=== PATIENT | male | born 1965 | race Caucasian/White ===

== ENCOUNTER 2024-03-08 12:29 | Outpatient (OUT) | payer OTHER, SELFPAY ==
[2024-03-08 13:21] LABS: Basophils Percent Auto 0.3 % (0.2-2.0); Eosinophils Absolute Auto 0.1 10^3/uL (0.0-0.7); Eosinophils Percent Auto 1.2 % (0.9-7.0); Hematocrit 48.7 % (42.0-54.0); Immature Granulocytes Abs Auto 0.02 10^3/uL (0.00-0.03); Immature Granulocytes Pct Auto 0.3 % (0.0-0.5); Lymphocytes Absolute Auto 1.5 10^3/uL (1.2-3.8); Lymphocytes Percent Auto 24.3 % (20.5-60.0); Mean Corpuscular HGB Conc 34.9 g/dL (29.9-35.2); Mean Corpuscular Hemoglobin 32.3 pg (25.9-34.0); Mean Corpuscular Volume 92.4 fL (80.0-94.0); Mean Platelet Volume 10.2 fL (9.5-13.5); Monocytes Absolute Auto 0.9 10^3/uL (0.3-0.8); Monocytes Percent Auto 14.7 % (1.7-12.0); Neutrophils Absolute Auto 3.6 10^3/uL (1.4-6.5); Neutrophils Percent Auto 59.2 % (43.0-75.0); Platelet Count 209 10^3/uL (150-450); Red Blood Count 5.27 10^6/uL (4.70-6.10); Red Cell Distribution Width 12.4 % (11.0-15.0); White Blood Count 6.1 10^3/uL (4.0-11.0)
[2024-03-08 13:32] LABS: Estimated Average Glucose 128 mg/dL; Glycohemoglobin A1C 6.1 % (4.5-6.2)
[2024-03-08 14:07] LABS: Alanine Aminotransferase 29 U/L (16-63); Albumin Level 3.8 g/dL (3.4-5.0); Alkaline Phosphatase 101 U/L (46-116); Aspartate Amino Transferase 15 U/L (15-37); BUN Creatinine Ratio 11.2; Bilirubin Total 0.7 mg/dL (0.2-1.0); Calcium 9.6 mg/dL (8.5-10.1); Carbon Dioxide 29.2 mmol/L (21.0-32.0); Chloride 105 mmol/L (98-107); Chol HDL Ratio 2.8; Cholesterol 138 mg/dL (<=200); Estimated GFR (African America >60 (>=60); Estimated GFR (Non-African Ame >60 (>=60); Globulin 3.7 g/dL; Glucose 110 mg/dL (74-106); HDL Cholesterol 50 mg/dL (40-60); LDL Cholesterol Calculated 69.4 mg/dL; Potassium 4.2 mmol/L (3.5-5.1); Sodium 141 mmol/L (136-145); Total Protein 7.5 g/dL (6.4-8.2); Triglycerides 93 mg/dL (<=150); VLDL CHOLESTEROL 18.6 mg/dL
[2024-03-09 10:27] LABS: Prostate Specific Antigen Scrn 0.62 ng/mL (<=4.00)
== END 2024-03-08 12:30 | disposition home or self-care (01) ==
LOC: LAB 12:32
PROVIDERS: PCP Internal Medicine; Visit Provider Internal Medicine
DX: Z00.00 Encounter for general adult medical examination without abnormal findings (principal)
CPT/HCPCS: 36415; 80053; 80061; 82043; 83036; 85025; G0103

== ENCOUNTER 2024-03-30 14:41 | Outpatient (OUT) | payer OTHER, SELFPAY ==
--- NOTE | 2024-03-30 14:47 | XR_ITS ---
The [address] [address] Patient Name: ARCHIE RAJAN MRN: [id number] date: 1965 Sex: M Assigned Patient Location: [facility] Current Patient Location: Accession/Order Number: [id number] Exam Date: 03/30/2024 15:00 Report Date: 04/01/2024 06:29 At the request of: MARICARMEN GILES Procedure: XR shoulder RT min 2V PROCEDURE: XR shoulder RT min 2V HISTORY: Neck Pain, Shoulder Pain , right COMPARISON: None. FINDINGS: BONES:Small ossification along the inferior margin of the glenohumeral joints without appreciable donor site. Degenerative osteophytes along the undersurface of the acromioclavicular joint. SOFT TISSUES:No visible soft tissue swelling. EFFUSION:None visible. OTHER: Negative. XR/XR shoulder RT min 2V IMPRESSION: 1. Nonspecific calcification projecting over inferior aspect of the right glenohumeral joint only seen on image 3. This is suggestively of a fracture fragment but no visible donor site. 2. Degenerative changes of the acromioclavicular joint which would predispose to rotator cuff injury. 3. MRI of right shoulder should be considered for further evaluation. Electronically authenticated by: PERRY TERRY Date: 04/01/2024 06:29
--- NOTE | 2024-03-30 14:47 | XR_ITS ---
The [address] [address] Patient Name: ARCHIE RAJAN MRN: [id number] date: 1965 Sex: M Assigned Patient Location: [facility] Current Patient Location: [facility] Accession/Order Number: [id number] Exam Date: 03/30/2024 15:00 Report Date: 04/01/2024 06:30 At the request of: MARICARMEN GILES Procedure: XR cervical spine w flex/ext EXAMINATION: XR cervical spine w flex/ext HISTORY: Neck Pain, Shoulder Pain , right COMPARISON: No relevant comparison available. FINDINGS: BONES: Multilevel mild degenerative facet arthropathy. Normal height and alignment of vertebral bodies; no fracture, spondylolisthesis, or change in alignment during flexion and extension. DISC SPACES: Slight narrowing C5-C6, C6-C7. PARASPINOUS: Negative. No paraspinous abnormality is seen. OTHER: Negative. XR/XR cervical spine w flex/ext IMPRESSION: 1. Mild degenerative disc disease and facet arthropathy. Electronically authenticated by: PERRY TERRY Date: 04/01/2024 06:30
== END 2024-03-30 14:42 | disposition home or self-care (01) ==
LOC: RAD 14:42
PROVIDERS: PCP Internal Medicine; Visit Provider Internal Medicine
DX: M54.2 Cervicalgia (principal); M25.519 Pain in unspecified shoulder; M47.812 Spondylosis without myelopathy or radiculopathy, cervical region; M50.30 Other cervical disc degeneration, unspecified cervical region
CPT/HCPCS: 72052; 73030

== ENCOUNTER 2024-04-12 12:37 | Outpatient (OUT) | payer OTHER, SELFPAY ==
--- NOTE | 2024-04-12 | MR_ITS ---
[address] [address] Patient Name: ARCHIE RAJAN MRN: [id number] date: 1965 Sex: M Assigned Patient Location: MRI Current Patient Location: Accession/Order Number: [id number] Exam Date: 04/12/2024 13:00 Report Date: 04/14/2024 05:13 At the request of: MARICARMEN GILES Procedure: MR shoulder RT wo con EXAMINATION: MR shoulder RT wo con HISTORY: Fracture of shoulder, right shoulder pain COMPARISON: XR shoulder right 03/30/2024 TECHNIQUE: A variety of imaging planes and parameters were utilized for visualization of suspected pathology. Imaging was performed without or with contrast as indicated by examination type. FINDINGS: ROTATOR CUFF REGION CUFF TENDONS: Mild/moderate strain of the supraspinatus tendon. Suspect disruption of the subscapularis tendon allowing for medial migration of the biceps tendon. CUFF MUSCLES: Normal appearing muscles. DELTOID: No significant atrophy or tear. LONG BICEPS TENDON: Not well seen but suspected to be displaced medially from the bicipital groove, located anterior to the glenohumeral joint. LABRUM/BICEPS ANCHOR SUPERIOR: No visible labral tear or biceps anchor pathology. ANTERIOR/INFERIOR: No visible tear or attrition. POSTERIOR: No posterior labrum abnormality. CAPSULE Normal. No visible capsular laxity or thickening. AC JOINT REGION AC JOINT: Moderate-marked osteoarthropathy with moderate narrowing of the underlying coracoacromial arch. AC LIGAMENTS: Normal acromioclavicular ligament. CC LIGAMENTS: Normal coracoclavicular ligaments. ACROMION: Normal horizontal (Type I) configuration. SUBACROMIAL BURSA: Normal. No significant effusion. HYALINE CARTILAGE: No visible cartilage narrowing or focal defect. OTHER BONES: Normal proximal humerus, glenoid, and coracoid. OTHER OBSERVATIONS: Negative. No other significant findings or glenohumeral effusion. MR/MR shoulder RT wo con IMPRESSION: 1. Suspect disruption of the subscapularis tendon allowing medial migration of the long head biceps tendon from the bicipital groove. 2. Moderate strain of the supraspinatus tendon. 3. Moderate to marked degenerative changes of acromioclavicular joints impinging upon the underlying musculotendinous junction which would predispose to rotator cuff injury. Electronically authenticated by: PERRY TERRY Date: 04/14/2024 05:13
== END 2024-04-12 12:38 | disposition home or self-care (01) ==
LOC: MRI 12:37
PROVIDERS: PCP Internal Medicine; Visit Provider Internal Medicine
DX: S42.90XD Fracture of unspecified shoulder girdle, part unspecified, subsequent encounter for fracture with routine healing (principal); M19.019 Primary osteoarthritis, unspecified shoulder; M05.51 Rheumatoid polyneuropathy with rheumatoid arthritis of shoulder; M19.011 Primary osteoarthritis, right shoulder
CPT/HCPCS: 73221

== ENCOUNTER 2024-06-03 16:23 | Outpatient (OUT) | payer OTHER, SELFPAY ==
--- OUTSIDE RECORDS SUMMARY | 2024-06-03 16:30 | XMS_ITS | CCD ---
Author Organization [facility] Inform ion Partnership [facility] Care Team Providers Care Drain Technician Name Role Phone TERRY, DR HERNADEZ Consulting Unavailable TERRY, DR HERNADEZ Primary Care Unavailable TERRY, DR HERNADEZ Admitting Unavailable TERRY, DR HERNADEZ Attending Unavailable TERRY, DR HERNADEZ Consulting Unavailable TERRY, DR HERNADEZ Primary Care Unavailable TERRY, DR HERNADEZ Admitting Unavailable TERRY, DR HERNADEZ Attending Unavailable MOMO, DR MAI Britton Consulting Unavailable TERRY, DR HERNADEZ Consulting Unavailable TERRY, DR HERNADEZ Primary Care Unavailable TERRY, DR HERNADEZ Admitting Unavailable TERRY, DR HERNADEZ Attending Unavailable Terry, Sharad Unavailable IDALIA VENEGAS Attending Unavailable JR. MARTIN, SVETLANA Hdz Attending UnavailNELSY Elmore Attending Unavailable Medications Current Medications Medication Drug Class(es) Dates Sig (Normalized) Sig (Original) 0.25 MG, 0.5 MG Dose 3 ML semaglutide 0.68 MG/ML Pen Injector [Ozempic] (1 source) Start: 05-19-2023 inject 0.5 mg by subcutaneous injection every week Ozempic (0.25 or 0.5 MG/DOSE) 2 MG/3ML 0.5mg Subcutaneous weekly for 30 days Apr, Active atorvastatin (9 sources) HMG-CoA Reductase Inhibitor Start: 01-12-2024 take 1 tablet by mouth once daily in the evening Atorvastatin Active 0 .ROUTE .COMPLEX 90 January 12, 2024 1:04pm TAKE 1 TABLET BY MOUTH DAILY IN THE EVENING Start: 12-30-2023 End: 01-12-2024 take 40 mg by mouth once daily Atorvastatin Discontinu ed 40 MG PO Daily December 30, 2023 12:00am January 12, 2024 1:04pm take 1 tablet by shelley th once daily in the evening Atorvastatin Calcium 40 MG TAKE 1 TABLET BY MOUTH DAILY IN THE EVENING for 90 Active benazepril hydrochloride 40 mg oral tablet (7 sources) Angiotensin Converting Enzyme Inhibitor Start: 12-30-2023 take 40 mg by mouth once daily Benazepril Active 40 MG PO Daily December 30, 2023 12:00am take 1 tablet by shelley th every twenty-four hours Benazepril HCl 40 MG 1 tablet Orally Onc e a day Active 24 hr buPROPion hydrochloride 150 mg extended release oral tablet (10 sources) Aminoketone Start: 04-19-2024 End: 04-20-2024 take 1 tablet by mouth once daily Bupropion Hcl Active 0 .ROUTE .COMPLEX April 20, 2024 9:34am TAKE 1 TABLET BY MOUTH DAILY Start: 11-19-2023 End: 04-19-2024 take 150 mg by mouth once daily Bupropion Hcl Disconti nued 150 MG PO Daily November 19, 2023 10:17am April 19, 2024 9:26pm Start: 12-18-2022 take 1 tablet by shelley th every twenty-four hours buPROPion HCl ER (XL) 150 MG 1 tablet in the morning Orally Once a day for 30 days Nov, Active escitalopram 20 mg oral tablet (8 sources) Serotonin Reuptake Inhibitor Start: 11-11-2023 End: 11-11-2023 take 20 mg by mouth once daily Escitalopram Oxalate Active 20 MG PO Daily November 11, 2023 8:44am Start: 12-11-2022 take 1 tablet by shelley th every twenty-four hours Escitalopram Oxalate 20 MG 1 tablet Orally Once a day for 30 days Nov, Active glimepiride 2 mg oral tablet (12 sources) Sulfonylurea Start: 04-20-2024 take 1 tablet by mouth once daily 30 minutes before breakfast Glimepiride Active 0 .ROUTE .COMPLEX April 20, 2024 9:33am TAKE 1 TABLET BY MOUTH DAILY 30 MINUTES BEFORE BREAKFAST Start: 11-11-2023 End: 04-20-2024 take 2 mg by mouth once daily in the morning Glimepiride Discontinued 2 MG PO Every morning 90 April 19, 2024 9:24pm April 20, 2024 9:34am take 1 tablet by shelley th once daily 30 minutes before breakfast Glimepiride 2 MG TAKE 1 TABLET BY MOUTH DAILY 30 MINUTES BEFORE BREAKFAST for 90 Active metFORMIN hydrochloride 500 mg oral tablet (8 sources) Biguanide Start: 04-19-2024 take 1 tablet by mouth once daily Metformin Active 0 .ROUTE .COMPLEX 90 April 19, 2024 9:24pm TAKE 1 TABLET BY MOUTH DAILY Start: 12-30-2023 End: 04-19-2024 take 500 mg by mouth once daily Metformin Discontinued 500 MG PO Daily December 30, 2023 12:00am April 19, 2024 9:26pm take 1 tablet by shelley th once daily metFORMIN HCl 500 MG TAKE 1 TABLET BY MOUTH DAILY for 90 Active predniSONE 20 mg oral tablet (2 sources) Start: 03-29-2024 take 20 mg by mouth twice daily Prednisone Active 20 MG PO Twice daily 10 March 29, 2024 12:00am Semaglutide (3 sources) Start: 12-30-2023 Semaglutide (Ozempic) 0.25 mg or 0.5 mg (2 mg/3 mL) pen injector Active 0.5 MG SUBCUT every week December 30, 2023 12:00am sildenafil 100 mg oral tablet (6 sources) Phosphodiesterase 5 Inhibitor Start: 12-30-2023 take 100 mg by mouth once daily Sildenafil Active 100 MG PO Daily December 30, 2023 12:00am Start: 12-06-2022 Sildenafil Cit rate 100 MG 1/2 - 1 Orally Once a day as needed for ED for 30 days Nov, Active 24 hr venlafaxine 75 mg extended release oral capsule (5 sources) Serotonin and Norepinephrine Reuptake Inhibitor take 1 capsule by mouth every twenty-four hours Venlafaxine HCl ER 75 MG 1 capsule with food Orally Once a day Active take 1 capsule by mouth once luis enrique ly Venlafaxine HCl ER 150 MG TAKE 1 CAPSULE BY MOUTH DAILY for 90 Active Problems Active Problems Problem Classification Problem Date Documented Da te Episodic/Chronic Diabetes mellitus with complications (16 sources) Type 2 diabetes mellitus with hyperglycemia; Translations: [Hyperglycemia due to type 2 diabetes mellitus] Onset: 10-23-2016 Chronic Diabetes mellitus without complication (1 source) Type 2 diabetes mellitus without complication; Translations: [Diabetes mellitus without mention of complication, type II or unspecified type, not stated as uncontrolled] Chronic Disorders of lipid metabolism (12 sources) Pure hypercholesterolemi a; Translations: [Familial hypercholesterolemi a] Onset: 09-06-2015 12-28-2023 Chronic Essential hypertension (12 sources) Essential hypertension; Translations: [Essential (primary) hypertension] Chronic Hyperplasia of prostate (6 sources) Benign prostatic hypertrophy without outflow obstruction; Translations: [Hypertrophy (benign) of prostate without urinary obstruction and other lower urinary tract symptoms [LUTS]] Onset: 10-23-2016 12-28-2023 Chronic Immunizations and screening for infectious disease (1 source) Vaccination given; Translations: [Encounter for immunization] Episodic Mood disorders (18 sources) Mild recurrent major depression; Translations: [Major depressive disorder, recurrent, mild] Onset: 10-23-2016 Chronic Osteoarthritis (3 sources) Primary osteoarthritis, right shoulder; Translations: [Degenerative joint disease of shoulder region] Onset: 06-22-2021 03-29-2024 Chronic Other connective tissue disease (1 source) Inflammation of rotator cuff tendon; Translations: [Other shoulder lesions, unspecified shoulder] 03-29-2024 Episodic Other connective tissue disease (1 source) Other shoulder lesions, unspecified shoulder; Translations: [Disorders of bursae and tendons in shoulder region, unspecified] 03-29-2024 Episodic Other injuries and conditions due to external causes (4 sources) Unspecified injury of muscle(s) and tendon(s) of the rotator cuff of right shoulder, initial encounter; Translations: [Injury of right rotator cuff, initial encounter] Episodic Other injuries and conditions due to external causes (1 source) Injury of tendon of the rotator cuff of shoulder; Translations: [Unspecified injury of muscle(s) and tendon(s) of the rotator cuff of right shoulder, initial encounter] Episodic Other male genital disorders (4 sources) Drug-induced erectile dysfunction; Translations: [Drug-induced erectile dysfunction] Chronic Other non-traumatic joint disorders (4 sources) Shoulder joint pain; Translations: [Pain in right shoulder] Episodic Other non-traumatic joint disorders (2 sources) Shoulder pain; Translations: [Pain in unspecified shoulder] 03-29-2024 Episodic Other non-traumatic joint disorders (2 sources) Pain in unspecified shoulder; Translations: [Pain in joint, shoulder region] 03-29-2024 Episodic Other nutritional; endocrine; and metabolic disorders (1 source) Obese class I; Translations: [Body mass index (BMI) 34.0-34.9, adult] Onset: 09-06-2015 Chronic Other nutritional; endocrine; and metabolic disorders (1 source) Obesity; Translations: [Obesity, unspecified] Onset: 04-07-2022 Chronic Other nutritional; endocrine; and metabolic disorders (2 sources) Body mass index 30+ - obesity; Translations: [Body mass index 36.0-36.9, adult] Onset: 09-06-2015 Chronic Other nutritional; endocrine; and metabolic disorders (1 source) Simple obesity ; Translations: [Other obesity due to excess calories] Onset: 09-06-2015 Chronic Other nutritional; endocrine; and metabolic disorders (1 source) Severe obesity; Translations: [Morbid (severe) obesity due to excess calories] Chronic Other screening for suspected conditions (not mental disorders or infectious disease) (5 sources) Encounter for screening for malignant neoplasm of prostate; Translations: [Screening for malignant neoplasms of prostate] Onset: 04-18-2022 12-30-2023 Episodic Other upper respiratory infections (2 sources) Acute maxillary sinusitis; Translations: [Acute recurrent maxillary sinusitis] Onset: 08-05-2014 Episodic Residual codes; unclassified (8 sources) Obstructive sleep apnea syndrome; Translations: [Obstructive sleep apnea (adult) (pediatric)] 12-28-2023 Chronic Residual codes; unclassified (3 sources) Obstructive sleep apnea (adult) (pediatric); Translations: [Obstructive sleep apnea (adult)(pediatric)] Chronic Residual codes; unclassified (1 source) Periodic limb movement disorder; Translations: [Periodic limb movement disorder] Onset: 11-12-2017 Chronic Residual codes; unclassified (4 sources) Smoker; Translations: [Tobacco use] Episodic Residual codes; unclassified (1 source) Tobacco user; Translations: [Tobacco use] Episodic Spondylosis; intervertebral disc disorders; other back problems (11 sources) Neck pain; Translations: [Cervicalgia] 03-29-2024 Episodic Superficial injury; contusion (1 source) Contusion of right shoulder; Translations: [Contusion of right shoulder, initial encounter] Episodic Past or Other Problems Problem Classification Problem Date Documented Da te Episodic/Chronic Other non-traumatic joint disorders (4 sources) Pain in right shoulder; Translations: [PAIN IN RIGHT SHOULDER] Onset: 06-16-2021 Episodic Other non-traumatic joint disorders (1 source) Arthralgia of the pelvic region and thigh; Translations: [Pain in joint, pelvic region and thigh] Onset: 05-02-2017 Episodic Otitis media and related conditions (1 source) Acute eustachian tube salpingitis; Translations: [Acute Eustachian salpingitis, unspecified ear] Onset: 08-05-2014 Episodic Substance-related disorders (1 source) 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; Translations: [Other specified drug-induced mental disorder] Onset: 11-06-2018 Episodic Results Test Name Value Interpretation Reference Range Facility Basophils Auto (Bld) [#/Vol] on 03-08-2024 Basophils (Bld) [#/Vol] 0.0 10 3/uL 0.0-0.1 [facility] Basophils/100 WBC Auto (Bld) on 03-08-2024 Basophils/100 WBC (Bld) 0.3 % 0.2-2.0 [facility] Cholesterol in LDL Calc [Mas s/Vol]on 03-08-2024 Cholesterol in LDL [Mass/Vol] 69.4 mg/dL [facility] Comment on above: <100 mg/dl [id number] 0-129 mg/dl NEAR OR ABOVE [id number] mg/dl BORDERLINE [id number] mg/dl HIGH>190 mg/dl VERY HIGH Cholesterol in VLDL Calc [Ma ss/Vol]on 03-08-2024 Cholesterol in VLDL [Mass/Vol] 18.6 mg/dL [facility] Eosinophils/100 WBC Auto (Bl d)on 03-08-2024 Eosinophils/100 WBC (Bld) 1.2 % 0.9-7.0 [facility] Erythrocyte distribution wid th Auto (RBC) [Ratio]on 03-08-2024 Erythrocyte distribution width (RBC) [Ratio] 12.4 % 11.0-15.0 [facility] Estimated glomerular filtrat ion rate (GFR) non- Americanon 03-08-2024 GFR/1.73 sq M.predicted among non-blacks MDRD (S/P/Bld) [Vol rate/Area] mL/min/{1.73_m2} >=60 [facility] Globulin Calc (S) [Mass/Vol] on 03-08-2024 Globulin (S) [Mass/Vol] 3.7 g/dL [facility] Glucose mean value [Mass/vol ume] in Blood Estimated from glycated hemoglobinon 03-08-2024 Average glucose Estimated from glycated hemoglobin (Bld) [Mass/Vol] 128 mg/dL [facility] Hematocrit Auto (Bld) [Volum e fraction]on 03-08-2024 Hematocrit (Bld) [Volume fraction] 48.7 % 42.0-54.0 [facility] Hemoglobin [Mass/volume] in Bloodon 03-08-2024 Hemoglobin (Bld) [Mass/Vol] 17.0 g/dL 14.0-18.0 [facility] Laboratory - Chemistry and C hemistry - challengeon 03-08-2024 Albumin [Mass/Vol] 3.8 g/dL 3.4-5.0 [facility] ALP [Catalytic activity/Vol] 101 U/L 46-116 [facility] ALT [Catalytic activity/Vol] 29 U/L 16-63 [facility] AST [Catalytic activity/Vol] 15 U/L 15-37 [facility] Bilirubin [Mass/Vol] 0.7 mg/dL 0.2-1.0 [facility] Calcium [Mass/Vol] 9.6 mg/dL 8.5-10.1 [facility] Chloride [Moles/Vol] 105 mmol/L 98-107 [facility] Cholesterol [Mass/Vol] 138 mg/dL <=200 [facility] Cholesterol in HDL [Mass/Vol] 50 mg/dL 40-60 [facility] Comment on above: > or =60 mg/dl - LOW CARDIOVASCULAR RISK<40 mg/dl - HIGH CARDIOVASCULAR RISK CO2 [Moles/Vol] 29.2 mmol/L 21.0-32.0 [facility] Creatinine [Mass/Vol] 0.98 mg/dL 0.70-1.30 [facility] GFR/1.73 sq M.predicted MDRD (S/P/Bld) [Vol rate/Area] mL/min/{1.73_m2} >=60 [facility] Glucose [Mass/Vol] 110 mg/dL High 74-106 [facility] Potassium [Moles/Vol] 4.2 mmol/L 3.5-5.1 [facility] Protein [Mass/Vol] 7.5 g/dL 6.4-8.2 [facility] Sodium [Moles/Vol] 141 mmol/L 136-145 [facility] Triglyceride [Mass/Vol] 93 mg/dL <=150 [facility] Urea nitrogen [Mass/Vol] 11.0 mg/dL 7.0-18.0 [facility] Urea nitrogen/Creatinine [Mass ratio] 11.2 mg/mg [facility] Laboratory - Hematology and Cell countson 03-08-2024 HbA1c (Bld) [Mass fraction] 6.1 % 4.5-6.2 [facility] Comment on above: ADA RECOMMENDED LIMI T 4.0 - 6.0ADA THERAPEUTIC TARGET < 7.0ACTION SUGGESTED> 7.0 Immature granulocytes/100 WBC (Bld) 0.3 % 0.0-0.5 [facility] Leukocytes [#/volume] correc chacorta for nucleated erythrocytes in Blood by Automated counon 03-08-2024 WBC corrected for nucl RBC Auto (Bld) [#/Vol] 6.1 10 3/uL 4.0-11.0 [facility] Lymphocytes Auto (Bld) [#/Vo l]on 03-08-2024 Lymphocytes (Bld) [#/Vol] 1.5 10 3/uL 1.2-3.8 [facility] Lymphocytes/100 WBC Auto (Bl d)on 03-08-2024 Lymphocytes/100 WBC (Bld) 24.3 % 20.5-60.0 [facility] MCH Auto (RBC) [Entitic mass ]on 03-08-2024 MCH (RBC) [Entitic mass] 32.3 pg 25.9-34.0 [facility] MCHC Auto (RBC) [Mass/Vol]on 03-08-2024 MCHC (RBC) [Mass/Vol] 34.9 g/dL 29.9-35.2 [facility] MCV Auto (RBC) [Entitic vol] on 03-08-2024 MCV (RBC) [Entitic vol] 92.4 fL 80.0-94.0 [facility] Microalbumin [Mass/volume] i n Urineon 03-08-2024 Albumin DL <= 20 mg/L (U) [Mass/Vol] 8.0 mg/dL <=30.0 [facility] Monocytes Auto (Bld) [#/Vol] on 03-08-2024 Monocytes (Bld) [#/Vol] 0.9 10 3/uL High 0.3-0.8 [facility] Monocytes/100 WBC Auto (Bld) on 03-08-2024 Monocytes/100 WBC (Bld) 14.7 % High 1.7-12.0 [facility] Neutrophils Auto (Bld) [#/Vo l]on 03-08-2024 Neutrophils (Bld) [#/Vol] 3.6 10 3/uL 1.4-6.5 [facility] Neutrophils/100 WBC Auto (Bl d)on 03-08-2024 Neutrophils/100 WBC (Bld) 59.2 % 43.0-75.0 [facility] No Panel Informationon 03-08 Eosinophils # (Auto) 0.1 10 3/uL 0.0-0.7 [facility] Immature Granulocyte # (Auto) 0.02 10 3/uL 0.00-0.03 [facility] Prostate Specific Antigen Screen 0.62 ng/mL <=4.00 [facility] Platelet mean volume Auto (B ld) [Entitic vol]on 03-08-2024 Platelet mean volume (Bld) [Entitic vol] 10.2 fL 9.5-13.5 [facility] Platelets Auto (Bld) [#/Vol] on 03-08-2024 Platelets (Bld) [#/Vol] 209 10 3/uL 150-450 [facility] RBC Auto (Bld) [#/Vol]on RBC (Bld) [#/Vol] 5.27 10 6/uL 4.70-6.10 [facility] Serum or plasma albumin/glob ulin mass ratioon 03-08-2024 Albumin/Globulin [Mass ratio] 1.0 {ratio} [facility] Serum or plasma anion gap de terminationon 03-08-2024 Anion gap [Moles/Vol] 11.0 mmol/[facility] Serum or plasma total choles terol/high density lipoprotein (HDL) cholesterol mass hernan 03-08-2024 Cholesterol.total/Cho lesterol in HDL [Mass ratio] 2.8 {ratio} [facility] Comment on above: 3.3 - 4.4 LOW RISK4. 4 - 7.1 AVERAGE RISK7.1 - 11.0 MODERATE RISK>11.0 HIGH RISK MICROALBUMIN URINEon 04-18- 022 Albumin, Urine 57.9 ug/mL Normal Not Estab. [facility] Comment on above: Performed By: #### M ALBLC #### [facility] [address] [place] [address] Dr. Cari Prabhakar CBC AUTO DIFFon 04-16-2022 BASO # 0.0 103/ul Normal 0.0-0.1 [facility] Comment on above: Performed By: #### C BC #### [facility] [address] [place] [address] Dr. Cari Prabhakar Basophils/100 WBC (Bld) 0.3 % Normal 0.2-2.0 [facility] Comment on above: Performed By: #### C BC #### [facility] [address] [place] [address] Dr. Cari Prabhakar EO # 0.0 103/ul Normal 0.0-0.7 [facility] Comment on above: Performed By: #### C BC #### [facility] [address] [place] [address] Dr. Cari Prabhakar Eosinophils/100 WBC (Bld) 0.3 % Critically low 0.9-7.0 [facility] Comment on above: Performed By: #### C BC #### [facility] [address] [place] [address] Dr. Cari Prabhakar Erythrocyte distribution width (RBC) [Ratio] 12.1 % Normal 11.0-15.0 [facility] Comment on above: Performed By: #### C BC #### [facility] [address] [place] [address] Dr. Cari Prabhakar Hematocrit (Bld) [Volume fraction] 46.4 % Normal 42.0-54.0 [facility] Comment on above: Performed By: #### C BC #### [facility] [address] [place] [address] Dr. Cari Prabhakar Hemoglobin (Bld) [Mass/Vol] 15.6 g/dL Normal 14.0-18.0 [facility] Comment on above: Performed By: #### C BC #### [facility] [address] [place] [address] Dr. Cari Prabhakar IG # 0.01 10e3/ul Normal 0.00-0.03 [facility] Comment on above: Performed By: #### C BC #### [facility] [address] [place] [address] Dr. Cari Prabhakar IG % 0.2 % Normal 0.0-0.5 [facility] Comment on above: Performed By: #### C BC #### [facility] [address] [place] [address] Dr. Cari Prabhakar LYMPH # 1.8 103/ul Normal 1.2-3.8 [facility] Comment on above: Performed By: #### C BC #### [facility] [address] [place] [address] Dr. Cari Prabhakar Lymphocytes/100 WBC (Bld) 28.2 % Normal 20.5-60.0 [facility] Comment on above: Performed By: #### C BC #### [facility] [address] [place] [address] Dr. Cari Prabhakar MANUAL DIFF REQ NO Normal [facility] Comment on above: Performed By: #### C BC #### [facility] [address] [place] [address] Dr. Cari Prabhakar MCH (RBC) [Entitic mass] 30.6 pg Normal 25.9-34.0 [facility] Comment on above: Performed By: #### C BC #### [facility] [address] [place] [address] Dr. Cari Prabhakar MCHC (RBC) [Mass/Vol] 33.6 g/dL Normal 29.9-35.2 [facility] Comment on above: Performed By: #### C BC #### [facility] [address] [place] [address] Dr. Cari Prabhakar MCV (RBC) [Entitic vol] 91.2 fL Normal 80.0-94.0 [facility] Comment on above: Performed By: #### C BC #### [facility] [address] [place] [address] Dr. Cari Prabhakar MONO # 0.8 103/ul Normal 0.3-0.8 [facility] Comment on above: Performed By: #### C BC #### [facility] [address] [place] [address] Dr. Cari Prabhakar Monocytes/100 WBC (Bld) 12.8 % Critically high 1.7-12.0 [facility] Comment on above: Performed By: #### C BC #### [facility] [address] [place] [address] Dr. Cari Prabhakar NEUT # 3.7 103/ul Normal 1.4-6.5 [facility] Comment on above: Performed By: #### C BC #### [facility] [address] [place] [address] Dr. Cari Prabhakar Neutrophils/100 WBC (Bld) 58.2 % Normal 43.0-75.0 [facility] Comment on above: Performed By: #### C BC #### [facility] [address] [place] [address] Dr. Cari Prabhakar Platelet mean volume (Bld) [Entitic vol] 10.8 fL Normal 9.5-13.5 [facility] Comment on above: Performed By: #### C BC #### [facility] [address] [place] [address] Dr. Cari Prabhakar PLT 193 103/ul Normal 150-450 [facility] Comment on above: Performed By: #### C BC #### [facility] [address] [place] [address] Dr. Cari Prabhakar RBC 5.09 106/ul Normal 4.70-6.10 [facility] Comment on above: Performed By: #### C BC #### [facility] [address] [place] [address] Dr. Cari Prabhakar WBC 6.3 103/ul Normal 4.0-11.0 [facility] Comment on above: Performed By: #### C BC #### [facility] [address] [place] [address] Dr. Cari Prabhakar GLYCOHEMOGLOBIN A1Con 2021 ADA RECOMMENDATION SEE BELOW Normal [facility] Comment on above: Result Comment: ADA RECOMMENDED LIMIT 4.0 - 6.0 ADA THERAPEUTIC TARGET < 7.0 ACTION SUGGESTED > 7.0 Performed By: #### A 1C #### [facility] [address] [place] [address] Dr. Cari Prabhakar Glucose [Mass/Vol] 220 mg/dL Normal [facility] Comment on above: Performed By: #### A 1C #### [facility] [address] [place] [address] Dr. Cari Prabhakar HbA1c (Bld) [Mass fraction] 9.3 % Critically high 4.5-6.2 [facility] Comment on above: Performed By: #### A 1C #### [facility] [address] [place] [address] Dr. Cari Prabhakar LIPID PROFILEon 04-16-2022 CHOL-HDL RATIO NORM SEE BELOW Normal [facility] Comment on above: Result Comment: 3.3 - 4.4 LOW RISK 4.4 - 7.1 AVERAGE RISK 7.1 - 11.0 MODERATE RISK >11.0 HIGH RISK Performed By: #### L IPID, CMP #### [facility] [address] [place] [address] Dr. Cari Prabhkaar Cholesterol [Mass/Vol] 155 mg/dL Normal <=200 [facility] Comment on above: Performed By: #### L IPID, CMP #### [facility] [address] [place] [address] Dr. Cari Prabhakar Cholesterol in HDL [Mass/Vol] 48 mg/dL Normal 40-60 [facility] Comment on above: Performed By: #### L IPID, CMP #### [facility] [address] [place] [address] Dr. Cari Prabhakar Cholesterol in LDL [Mass/Vol] 82.4 mg/dL Normal [facility] Comment on above: Performed By: #### L IPID, CMP #### [facility] [address] [address] [address] Cari Prabhakar Cholesterol.total/Cho lesterol in HDL [Mass ratio] 3.2 {ratio} Normal [facility] Comment on above: Performed By: #### L IPID, CMP #### [facility] [address] [address] [address] Cari Prabhakar HDL NORMAL > or = 60 mg/dl - LOW CARDIOVASCULAR RISK <40 mg/dl - HIGH CARDIOVASCULAR RISK Normal [facility] [place] Comment on above: Performed By: #### L IPID, CMP #### [facility] [address] [address] [address] Cari Prabhakar LDL CALC NORMAL SEE BELOW Normal [facility] Comment on above: Result Comment: <100 mg/dl OPTIMAL 100 - 129 mg/dl NEAR OR ABOVE OPTIMAL 130 - 159 mg/dl BORDERLINE HIGH 160 - 189 mg/dl HIGH >190 mg/dl VERY HIGH Performed By: #### L IPID, CMP #### [facility] [address] [address] [address] Cari Prabhakar Triglyceride [Mass/Vol] 123 mg/dL Normal <=150 [facility] [place] Comment on above: Performed By: #### L IPID, CMP #### [facility] [address] [address] [address] Cari Prabhakar VLDL CALC 24.6 mg/dL Normal [facility] [place] Comment on above: Performed By: #### L IPID, CMP #### [facility] [address] [address] [address] Cari Prabhakar PROF 14(COMP METB)on 022 Albumin [Mass/Vol] 4.1 g/dL Normal 3.4-5.0 [facility] Comment on above: Performed By: #### L IPID, CMP #### [facility] [address] [place] [address] Dr. Cari Prabhakar Albumin/Globulin [Mass ratio] 1.1 {ratio} Normal [facility] [place] Comment on above: Performed By: #### L IPID, CMP #### [facility] [address] [address] [address] Cari Prabhakar ALP [Catalytic activity/Vol] 105 U/L Normal 46-116 [facility] Comment on above: Performed By: #### L IPID, CMP #### [facility] [address] [address] [address] Cari Prabhakar ALT [Catalytic activity/Vol] 53 U/L Normal 16-63 [facility] Comment on above: Performed By: #### L IPID, CMP #### [facility] [address] [place] [address] Dr. Cari Prabhakar Anion gap [Moles/Vol] 13.5 mmol/L Normal [facility] Comment on above: Performed By: #### L IPID, CMP #### [facility] [address] [place] [address] Dr. Cari Prabhakar AST [Catalytic activity/Vol] 24 U/L Normal 15-37 [facility] Comment on above: Performed By: #### L IPID, CMP #### [facility] [address] [place] [address] Dr. Cari Prabhakar Bilirubin [Mass/Vol] 0.6 mg/dL Normal 0.2-1.0 [facility] Comment on above: Performed By: #### L IPID, CMP #### [facility] [address] [place] [address] Dr. Cari Prabhakar Calcium [Mass/Vol] 9.9 mg/dL Normal 8.5-10.1 [facility] Comment on above: Performed By: #### L IPID, CMP #### [facility] [address] [place] [address] Dr. Cari Prabhakar Chloride [Moles/Vol] 99 mmol/L Normal 98-107 [facility] [place] Comment on above: Performed By: #### L IPID, CMP #### [facility] [address] [place] [address] Dr. Cari Prabhakar CO2 [Moles/Vol] 27.0 mmol/L Normal 21.0-32.0 [facility] Comment on above: Performed By: #### L IPID, CMP #### [facility] [address] [address] [address] Cari Prabhakar Creatinine [Mass/Vol] 0.94 mg/dL Normal 0.70-1.30 [facility] [place] Comment on above: Performed By: #### L IPID, CMP #### [facility] [address] [address] [address] Cari Prabhakar EGFR-AF TRINIDADIAN >60 Normal >=60 [facility] Comment on above: Performed By: #### L IPID, CMP #### [facility] [address] [address] [address] Cari Prabhakar EGFR-NON AF TRINIDADIAN >60 Normal >=60 [facility] [place] Comment on above: Performed By: #### L IPID, CMP #### [facility] [address] [address] [address] Cari Prabhakar Globulin (S) [Mass/Vol] 3.6 g/dL Normal [facility] [place] Comment on above: Performed By: #### L IPID, CMP #### [facility] [address] [address] [address] Cari Prabhakar Glucose [Mass/Vol] 204 mg/dL Critically high 74-[address] [facility] Comment on above: Performed By: #### L IPID, CMP #### [facility] [address] [address] [address] Cari Prabhakar Potassium [Moles/Vol] 4.5 mmol/L Normal 3.5-5.1 [facility] Comment on above: Performed By: #### L IPID, CMP #### [facility] [address] [address] [address] Cari Prabhakar Protein [Mass/Vol] 7.7 g/dL Normal 6.4-8.2 [facility] Comment on above: Performed By: #### L IPID, CMP #### [facility] [address] [address] [address] Cari Prabhakar Sodium [Moles/Vol] 135 mmol/L Critically low 136-145 Th [facility] Comment on above: Performed By: #### L IPID, CMP #### [facility] [address] [address] [address] Cari Prabhakar Urea nitrogen [Mass/Vol] 14.0 mg/dL Normal 7.0-18.0 [facility] Comment on above: Performed By: #### L IPID, CMP #### [facility] [address] [address] [address] Cari Prabhakar Urea nitrogen/Creatinine [Mass ratio] 14.9 mg/mg Normal [facility] [place] Comment on above: Performed By: #### L IPID, CMP #### [facility] [address] [address] [address] Cari Prabhakar GLYCOHEMOGLOBIN A1Con 2021 ADA RECOMMENDATION ADA THERAPEUTIC TARGET 6.0 - 7.0 ACTION SUGGESTED > 7.0 Normal [facility] [place] Comment on above: Performed By: #### A 1C #### [facility] [address] [address] [address] Cari Prabhakar Glucose [Mass/Vol] 169 mg/dL Normal [facility] Comment on above: Performed By: #### A 1C #### [facility] [address] [address] [address] Cari Prabhakar HbA1c (Bld) [Mass fraction] 7.5 % Critically high <=6.0 [facility] [place] Comment on above: Performed By: #### A 1C #### [facility] [address] [address] [address] Cari Prabhakar Vital Signs Date Time Vital Sign Value Performing Clinician Facility 03-29-2024 08:57-0400 Body height 182.88 cm [facility] 03-29-2024 08:57-0400 Body mass index (BMI) [Ratio] 35.2 kg/m2 [facility] 03-29-2024 08:57-0400 Body weight 117.65 kg [facility] 03-29-2024 08:57-0400 Diastolic blood pressure 112 mm[Hg] [facility] 03-29-2024 08:57-0400 Heart rate 82 /min [facility] 03-29-2024 08:57-0400 Respiratory rate 12 /min [facility] 03-29-2024 08:57-0400 Systolic blood pressure 175 mm[Hg] [facility] 12-30-2023 14:45-0400 Body height 182.88 cm [facility] 12-30-2023 14:45-0400 Body mass index (BMI) [Ratio] 36.1 kg/m2 [facility] 12-30-2023 14:45-0400 Body weight 120.76 kg [facility] 12-30-2023 14:45-0400 Diastolic blood pressure 90 mm[Hg] [facility] 12-30-2023 14:45-0400 Heart rate 87 /min [facility] 12-30-2023 14:45-0400 Respiratory rate 12 /min [facility] 12-30-2023 14:45-0400 Systolic blood pressure 157 mm[Hg] [facility] 12-03-2022 15:15-0400 Body height 182.88 cm Sharad Ball Other [facility] Other 12-03-2022 15:15-0400 Body mass index (BMI) [Ratio] 35.18 kg/m2 Sharad Ball Other [facility] Other 12-03-2022 15:15-0400 Body weight 117.66 kg Sharad Ball Other [facility] Other 12-03-2022 15:15-0400 Diastolic blood pressure 92 mm[Hg] Sharad Ball Other [facility] Other 12-03-2022 15:15-0400 Respiratory rate 12 /min Sharad Ball Other [facility] Other 12-03-2022 15:15-0400 Systolic blood pressure 175 mm[Hg] Sharad Ball Other [facility] Other Encounters Encounter Date Encounter Type Care Provider Facility Start: 06-01-2024 End: 06-01-2024 ambulatory IDALIA VENEGAS Not Available Start: 05-12-2024 End: 05-12-2024 ambulatory SVETLANA BALL Not Available Start: 04-22-2024 End: 04-22-2024 ambulatory NELSY MALAGON Not Available Start: 04-20-2024 ambulatory [facility] Work Phone: Start: 04-20-2024 Non-patient / Non-visit [facility] Work Phone: Start: 03-29-2024 End: 03-29-2024 ambulatory [facility] Work Phone: Start: 03-29-2024 End: 03-29-2024 Patient encounter procedure [facility] Work Phone: Start: 03-08-2024 Non-patient / Non-visit [facility] Work Phone: Start: 12-30-2023 End: 12-30-2023 ambulatory [facility] Work Phone: Start: 12-30-2023 End: 12-30-2023 Encounter for general adult medical examination without abnormal findings [facility] Start: 12-30-2023 End: 12-30-2023 Patient encounter procedure [facility] Work Phone: Start: 11-11-2023 Non-patient / Non-visit [facility] Work Phone: Start: 06-06-2023 End: 06-06-2023 ambulatory Sharad Giles Other [facility] Other Start: 06-06-2023 Telephone encounter Sharad Fragoso [facility] Start: 12-18-2022 End: 12-18-2022 ambulatory Sharad Giles Other [facility] Other Start: 12-18-2022 Telephone encounter Sharad Fragoso [facility] Start: 12-06-2022 End: 12-06-2022 ambulatory Sharad Giles Other [facility] Other Start: 12-06-2022 Telephone encounter Sharad Giles [facility] Start: 12-03-2022 End: 12-03-2022 ambulatory Sharad [facility] Other [facility] Other Start: 12-03-2022 Office outpatient vi sit 15 minutes Sharad Giles [facility] Start: 04-18-2022 Encounter for genera l adult medical examination without abnormal findings DR SHARAD GILES [facility] Start: 04-16-2022 End: 04-17-[address] SHARAD GILES Facility:[facility] Start: 04-16-2022 End: 04-17-2022 Encounter for general adult medical examination without abnormal findings DR SHARAD GILES Facility:[facility] Start: 04-07-2022 Adult health examination Sharad Giles Other [facility] Other Start: 10-04-2021 End: 10-05-[address] SHARAD GILES Facility:[facility] Start: 06-16-2021 End: 06-17-[address] SHARAD GILES Facility:[facility] Procedures Date Procedure Procedure Detail Performing Clinician Start: 04-16-[address] [place] Comment on above: Performed By: #### [facility] #### [facility] [address] [place] [address] Dr. Cari Prabhakar Start: 11-06-2018 Screening for malign ant neoplasm of colon Sharad Giles Other General examination of patient Sharad Giles Other Plan of Treatment Date Care Activity Detail Author Start: 04-20-2024 Patient referral [facility] Work Phone: Comprehensive metabo lic 2000 panel - Serum or Plasma [facility] Microalbumin [Mass/v olume] in Urine [facility] Patient referral [facility] Work Phone: XR Cervical spine Vi ews W flexion and W extension [facility] XR Shoulder - right Views Fi [facility] Immunizations Immunization Date Immunization Notes Care Provider Fa sofie 07-24-2021 COVID-19 Vaccine Pfi zer - Documentation Purposes Only Sharad Giles Other [facility] 06-20-2021 influenza virus vaccine, split virus (incl. purified surface antigen) Sharad Giles Other [facility] Other 06-20-2021 influenza virus vaccine, unspecified formulation [facility] 11-28-2020 COVID-19 Vaccine Pfi zer - Documentation Purposes Only Sharad Giles Other [facility] 11-07-2020 COVID-19 Vaccine Pfi zer - Documentation Purposes Only Sharad Giles Other [facility] Payers Date Payer Category Payer Unknown [id number] 1965 Unknown [id number] 2.16.84 [id number] 1965 Unknown [id number] 2.16.84 [id number] 1965 Unknown [id number] 2.16.84 [id number] 1965 Unknown [id number] 2.16.84 [id number] 1965 Unknown [id number] 2.16.84 [id number] 1965 Unknown [id number] 2.16.84 [id number] 1959 Unknown [id number] Unknown [id number] Social History Date Type Detail Facility Sex Assigned At [facility] Other Start: 1965 Sex Assigned At Male F [facility] Clinical Notes 06-18-2021 to 06-06-2023 Note Date & Type Note Facility 06-06-2023 Evaluation note Encounter Date Diagnosis Assessment Notes May, Depressio n, major, recurrent , mild (ICD-10 - F33.0) [facility] Other 04-26-2023 Evaluation note* Encounter Date Diagnosis Assessment Notes Treatment Notes Treatment Clinical Notes Nov, Moderate episode of recurrent major depressive disorder (ICD-10 - F33.1) [facility] Other 04-14-2023 Evaluation note* Encounter Date Diagnosis Assessment Notes Treatment Notes Treatment Clinical Notes Nov, Drug-induced erectile dysfunction (ICD-10 - N52.2) [facility] Other 04-11-2023 Evaluation note* Encounter Date Diagnosis Assessment Notes Treatment Notes Treatment Clinical Notes Nov, Obstructive sleep apnea (ICD-10 - G47.33) Needs a retitration study, hasn't used equipment for 2 years Machine > 10 years old and broken. Nov, Primary hypertension (ICD-10 - I10) This patient is instructed to consume a healthy, low-fat, low-salt diet. They are also encouraged to continue exercise to achieve/maintain a normal BMI. Home BP measurements daily and update office in couple weeks Nov, Depression, major, recurrent, mild (ICD-10 - F33.0) Wean Effexor and initiate SSRI + Wellbutrin. Healthy diet and exercise Treat DANI Consistent sleep routine Decrease Effexor 75mg q week. Start new SSRI once dose < 150 Add Wellbutrin after Effexor completely weaned off Nov, Controlled type 2 diabetes mellitus with hyperglycemia, without long-term current use of insulin (ICD-10 - E11.65) This patient is following a comprehensive diabetic treatment plan. They are checking their feet daily for calluses and nonhealing ulcers. They are being seen for yearly dilated eye examinations. Goals: SBP less than 130, LDL less than 100, FBS less than 140, AC and A1C less than 7%. They are checking their BS daily, will which are reviewed at the office visit. [facility] Other 10-25-2021 NotePROCEDURE: XR SHOULDER RT 2V or > COMPARISON: None. HISTORY: Pain of right shoulder joint FINDINGS: BONES:No acute fracture or dislocation. Mild osteoarthropathy of the acromioclavicular and glenohumeral joints. SOFT TISSUES:Negative. No visible soft tissue swelling. EFFUSION:None visible. OTHER: Negative. IMPRESSION: Mild osteoarthritis Electronically authenticated by: MAI BARR Date: 2021-06-18 07:32[facility] Diagnosis Onset Date Resolution Status Benign prostatic hyperplasia with lower urinary tract symptoms acute Elevated cholesterol acute Hypertension acute Major depression acute DANI (obstructive sleep apnea) acute Type 2 diabetes mellitus with hyperglycemia acute Screening PSA (prostate specific antigen) noneactive Screening for colon cancer n oneactive Wellness examination noneact mattie [facility] Work Phone: Evaluation note* Diagnosis Onset Date Resolution Status Benign prostatic hyperplasia with lower urinary tract symptoms acute Elevated cholesterol acute Hypertension acute Major depression acute DANI (obstructive sleep apnea) acute Type 2 diabetes mellitus with hyperglycemia acute Screening PSA (prostate specific antigen) noneactive Screening for colon cancer n oneactive Wellness examination noneact mattie Neck pain acute Shoulder pain acute [facility] Work Phone: Evaluation note* Diagnosis Onset Date Resolution Status Cervical radiculopathy, acute acute Neck pain acute Primary osteoarthritis of shoulder acute Rotator cuff tendonitis acut e Shoulder pain acute [facility] Work Phone: Hisajlq general Narrative - Reported* Type Description Date Medical History Injury of right rotator cuff, in itial encounter Medical History Acute neck pain Medical History Pain in right shoulder Medical History Current smoker Medical History Controlled type 2 di abetes mellitus with hyperglycemia, without long-term current use of insulin Medical History Hyperlipidemia type II Medical History Depression, major, recurrent, mi ld Medical History Obstructive sleep apnea [facility] Other [facility] general Narrative - Reported* Type Description Date Medical History Injury of right rotator cuff, in itial encounter Medical History Acute neck pain Medical History Pain in right shoulder Medical History Current smoker Medical History Controlled type 2 di abetes mellitus with hyperglycemia, without long-term current use of insulin Medical History Hyperlipidemia type II Medical History Depression, major, recurrent, mi ld Medical History Obstructive sleep apnea Surgical History Problem Title : Non- Contributory Past Surgical History, Problem Status : Active, Surgical History Problem Title : past surgical history reviewed, Problem Description : past surgical history reviewed, Problem Comment : reviewed - no changes required, Problem Status : Resolved, [facility] Other Hospital Discharge instructionsAmbulatory Orders* Referral to Orthopedic Surgery Location: None Selected [facility] Work Phone: Summary Purpose Family History No Family History Records Found Relationship Condition Age at Onset Recorded Date/T jeferson father Hypertension Unknown Malignant neoplasm Unknown Not Specified Diabetes mellitus Unknown Relationship Condition Age at Onset Recorded Date/T jeferson father Hypertension Unknown Malignant neoplasm Unknown mother Diabetes mellitus Unknown Advance Directives No Advanced Directives Records Found Advance Directive Response Recorded Date/ Time Advance Directives No December 30, 2023 2:34pm Chief Complaint and Reason for Visit Chief Complaint Amb Documentation Wellness Reason for Visit Benign prostatic hyp erplasia with lower urinary tract symptoms Elevated cholesterol Hypertension Major depression DANI (obstructive sleep apnea) Type 2 diabetes mellitus with hyperglycemia Screening PSA (prostate specific antigen) Screening for colon cancer Wellness examination Chief Complaint Wellness right shoulder pain Reason for Visit Benign prostatic hyp erplasia with lower urinary tract symptoms Elevated cholesterol Hypertension Major depression DANI (obstructive sleep apnea) Type 2 diabetes mellitus with hyperglycemia Screening PSA (prostate specific antigen) Screening for colon cancer Wellness examination Neck pain Shoulder pain Chief Complaint right shoulder pain Reason for Visit Cervical radiculopat hy, acute Neck pain Primary osteoarthritis of shoulder Rotator cuff tendonitis Shoulder pain Additional Source Comments (unrecognized sect ion and content) No Status Records FoundNo Status Records Found INFORMATION SOURCE (unrecogn ized section and content) DATE CREATED AUTHOR 04/19/2022 [facility] DATE CREATED AUTHOR AUTHOR'S ORGANIZ ATION 06/03/2024 [facility] EPIC REASON FOR VISIT (unrecogniz ed section and content) depression discussionNo Info rmationNo InformationNo Information Care Teams (unrecognized sec tion and content) Team Status: Active Member Role Status Dates Sharad Giles DO Primary Care Provider Active Team Status: Active Member Role Status Dates Sharad Giles DO Primary Care Provide r, Attending Provider Active Start: March 08, 2024 Team Status: Inactive Member Role Status Dates Sharad Giles DO Primary Care Provide r, Attending Provider Active Start: March 29, 2024 End: March 29, 2024 Team Status: Active Member Role Status Dates Sharad Giles DO Primary Care Provide r, Attending Provider Active Start: April 20, 2024 Team Status: Inactive Member Role Status Dates Sharad Giles DO Primary Care Provide r, Attending Provider Active Start: December 30, 2023 End: December 30, 2023 Team Status: Active Member Role Status Dates Sharad [facility] DO Primary Care Provider Active Start: November 11, 2023 MILLY Valdovinos Attending Provider Active St art: November 11, 2023 Goals (unrecognized section and content) Goals may be documented in a n alternate section FOR RECORDS PERTAINING TO PATIENTS WHO ARE OR HAVE BEEN ENROLLED IN A CHEMICAL DEPENDENCY/SUBSTANCEABUSE PROGRAM, SOME INFORMATION MAY BE OMITTED. This clinical summary was aggregated from multiple sources. Caution should be exercised in using it in the provision of clinical care. This summary normalizes information from multiple sources, and as a consequence, information in this document may materially change the coding, format and clinical context of patient data. In addition, data may be omitted in some cases. CLINICAL DECISIONS SHOULD BE BASED ON THE PRIMARY CLINICAL RECORDS. [facility]. provides no warranty or guarantee of the accuracy or completeness of information in this document.
[2024-06-03 17:37] LABS: Anion Gap 11.9; BUN Creatinine Ratio 8.8; Calcium 9.3 mg/dL (8.5-10.1); Carbon Dioxide 27.5 mmol/L (21.0-32.0); Chloride 103 mmol/L (98-107); Estimated GFR (African America >60 (>=60 mL/min/1.73m^2); Estimated GFR (Non-African Ame >60 (>=60 mL/min/1.73m^2); Glucose 104 mg/dL (74-106); Potassium 4.4 mmol/L (3.5-5.1); Sodium 138 mmol/L (136-145)
== END 2024-06-03 16:24 | disposition home or self-care (01) ==
LOC: LAB 16:24
PROVIDERS: PCP Internal Medicine; Visit Provider Personal Emergency Response Attendant
DX: Z01.818 Encounter for other preprocedural examination (principal)
CPT/HCPCS: 36415; 80048

== ENCOUNTER 2025-02-23 11:33 | Outpatient (OUT) | payer OTHER, SELFPAY ==
--- OUTSIDE RECORDS SUMMARY | 2025-02-23 11:42 | XMS_ITS | Clinical Summary ---
Author Organization [facility] Address [address] [place] [address] Care Team Providers Care Insurance Defense Paralegal Name Role Phone Sharad Stewart DO Primary Care Provider [phone] Allergies No known active allergies Medications atorvastatin (Lipitor) 40 MG tablet 04/19/2024 Active benazepril (Lotensin) 40 MG tablet Daily 12/30/2023 Active buPROPion XL (Wellbutrin XL) 150 MG 24 hr tablet .COMPLEX 04/20/2024 Active escitalopram (Lexapro) 20 MG tablet Daily 11/11/2023 Active glimepiride (Amaryl) 2 MG tablet .COMPLEX 04/20/2024 Active metFORMIN (Glucophage) 500 MG tablet .COMPLEX 04/19/2024 Active Semaglutide,0.25 or 0.5MG/DOS, 2 MG/3ML solution pen-injector every week 12/30/2023 Activ e sildenafil (Viagra) 100 MG tablet Daily 12/30/2023 Active Active Problems No known active problems Family History Medical History Relation Name Comments Cancer Father Hypertension Father Stroke Father Diabetes Mother Relation Name Status Comments Father Mother Social History Tobacco Use Types Packs/Day Years Used Date Smoking Tobacco: Never Smokeless Tobacco: Current Chew Tobacco Cessation:Ready to Q uit: Not Asked; Counseling Given: Not Answered Alcohol Use Standard Drinks/Week Comments Yes 0 (1 standard drink = 0.6 oz pur e alcohol) Sex and Gender Information Value Date Recorded Sex Assigned at Not on file Legal Sex Male 6:41 PM EDT Gender Identity Not on file Sexual Orientation Not on file Last Filed Vital Signs Vital Sign Reading Time Taken Comments Blood Pressure - - Pulse - - Temperature - - Respiratory Rate - - Oxygen Saturation - - Inhaled Oxygen Concentration - - Weight 118 kg (260 lb) 06/01/2024 2:44 PM EDT Height 182.9 cm (6') 06/01/2024 2:44 PM EDT Body Mass Index 35.26 06/01/2024 2:44 PM EDT Plan of Treatment Not on file Insurance [employer] Care Teams Insurance Defense Paralegal Relationship Specialty Start Date End Date Sharad Stewart DO PCP - General Internal Medicine 04/22/24
--- OUTSIDE RECORDS SUMMARY | 2025-02-23 11:42 | XMS_ITS | Encounter Summary ---
Author Organization [facility] Address [address] [place] [address] Care Team Providers Care Electric Motor Analyst Name Role Phone Sharad Stewart DO Primary Care Provider [phone] Encounter Details Date Type Department Care Team (Late st Contact Info) Description 04/21/2024 Orders Only [facility] [address] [place] [address] Sharad Stewart DO [address] [facility] [address] Social History Tobacco Use Types Packs/Day Years Used Date Smoking Tobacco: Never Assessed Sex and Gender Information Value Date Recorded Sex Assigned at Not on file Legal Sex Male 6:41 PM EDT Gender Identity Not on file Sexual Orientation Not on file documented as of this encounter Plan of Treatment Not on file documented as of this encounter Procedures Procedure Name Priority Date/Time Associated Diagnosis Comments XR SHOULDER 2+ VIEWS RIGHT Routine 04/21/2024 11:55 AM EDT XR CERVICAL SPINE AP/LAT/FLEX/EXT Routine 04/21/2024 11:54 AM EDT MR SHOULDER RIGHT WO IV CONTRAST Routine 04/21/2024 11:53 AM EDT documented in this encounter Results * XR shoulder 2+ views right (04/21/2024 11:55 AM EDT) Anatomical Region Laterality Modality Upper Extremities, Shoulder Right Radi ographic Imaging us Sharad Stewart DO IMG XR PROCEDURES Final Resul t * XR CERVICAL SPINE AP/LAT/FLEX/EXT (04/21/2024 11:54 AM EDT) Anatomical Region Laterality Modality Spine, C-spine Radiographic Felisha ging us Sharad Stewart DO IMG XR PROCEDURES Final Resul t * MR shoulder right wo IV contrast (04/21/2024 11:53 AM EDT) Anatomical Region Laterality Modality Upper Extremities, Shoulder Right Magn etic Resonance us Sharad Stewart DO IMG MRI PROCEDURES Final Resu lt documented in this encounter Visit Diagnoses Not on filedocumented in this encounter Care Teams Electric Motor Analyst Relationship Specialty Start Date End Date Sharad Stewart, PCP - General Internal Medicine 04/22/24 documented as of this encounter
[2025-02-23 12:06] LABS: Hematocrit 46.8 % (42.0-54.0); Hemoglobin 16.2 g/dL (14.0-18.0); Immature Granulocytes Abs Auto 0.02 10^3/uL (0.00-0.03); Immature Granulocytes Pct Auto 0.3 % (0.0-0.5); Lymphocytes Absolute Auto 1.2 10^3/uL (1.2-3.8); Mean Corpuscular HGB Conc 34.6 g/dL (29.9-35.2); Mean Corpuscular Hemoglobin 32.3 pg (25.9-34.0); Mean Corpuscular Volume 93.4 fL (80.0-94.0); Platelet Count 192 10^3/uL (150-450); Red Blood Count 5.01 10^6/uL (4.70-6.10); White Blood Count 6.0 10^3/uL (4.0-11.0)
[2025-02-23 12:27] LABS: Alanine Aminotransferase 34 U/L (16-63); Albumin Globulin Ratio 1.0; Albumin Level 3.6 g/dL (3.4-5.0); Alkaline Phosphatase 88 U/L (46-116); Anion Gap 14.0; Aspartate Amino Transferase 19 U/L (15-37); Blood Urea Nitrogen 18.0 mg/dL (7.0-18.0); Calcium 9.2 mg/dL (8.5-10.1); Carbon Dioxide 26.5 mmol/L (21.0-32.0); Chloride 107 mmol/L (98-107); Cholesterol 147 mg/dL (<=200); Estimated GFR (African America >60 (>=60 mL/min/1.73m^2); Estimated GFR (Non-African Ame >60 (>=60 mL/min/1.73m^2); Globulin 3.5 g/dL; Glucose 156 mg/dL (74-106); HDL Cholesterol 51 mg/dL (40-60); Potassium 4.5 mmol/L (3.5-5.1); Sodium 143 mmol/L (136-145); Total Protein 7.1 g/dL (6.4-8.2); Triglycerides 133 mg/dL (<=150); VLDL CHOLESTEROL 26.6 mg/dL
[2025-02-23 12:29] LABS: Microalbum Creatinine Ratio Ur 29.5 mg/g (0.0-29.9)
== END 2025-02-23 11:34 | disposition home or self-care (01) ==
LOC: LAB 11:40
PROVIDERS: PCP Internal Medicine; Visit Provider Internal Medicine
DX: Z00.00 Encounter for general adult medical examination without abnormal findings (principal); Z12.5 Encounter for screening for malignant neoplasm of prostate
CPT/HCPCS: 36415; 80053; 80061; 82043; 82570; 83036; 85025; G0103